=== PATIENT | female | born 1995 | race Caucasian/White ===

== ENCOUNTER 2018-05-20 16:05 | Emergency (ER) | payer MEDICAID ==
[~2018-05-20] VITALS: Ht 160 cm; Wt 52.6 kg
[2018-05-20 16:58] LABS: Basophils # (auto) 0 uL; Basophils % (auto) 0.2 % (0.0-2.0); Eosinophils # (auto) 0.1 uL; Eosinophils % (auto) 1.5 % (0.0-7.0); Hemoglobin 14.3 g/dL (12.2-16.2); Lymphocytes # (auto) 0.7 uL; Mean Corpuscular Hemoglobin 30.5 pg (28.0-32.0); Mean Corpuscular Volume 89.5 fL (80.0-100.0); Monocytes # (auto) 0.6 uL; Monocytes % (auto) 10.3 % (0.0-12.0); Neutrophils # (auto) 4.2 uL; Platelet Count (auto) 241 10^3/uL (140-450); Red Cell Distribution Width 13.1 % (11.8-14.3); White Blood Cell 5.6 10^3/uL (4.4-10.8)
[2018-05-20 17:11] LABS: Albumin 3.7 g/dL (3.4-5.0); Calcium 8.6 mg/dL (8.5-10.1); Potassium 3.7 mmol/L (3.5-5.1)
[2018-05-20 17:14] LABS: BUN/Creatinine Ratio 12.1; Bilirubin, Total 0.4 mg/dL (0.2-1.0); Total Protein 7.6 g/dL (6.4-8.2)
[2018-05-20 19:36] VITALS: BP 132/74
== END 2018-05-20 19:36 | disposition home or self-care (01) ==
LOC: ER 16:05
DX: O20.0 Threatened abortion (principal); Z3A.11 11 weeks gestation of pregnancy
CPT/HCPCS: 36415; 76801; 80053; 81025; 84702; 85025

== ENCOUNTER 2018-10-19 09:45 | Observation (INO) | payer MEDICAID | END 2018-10-19 16:24 | disposition home or self-care (01) | DRG 566 | LOC: LDRP 15:30 | PROVIDERS: ADMIT Specialist; ATTEND Specialist | DX: O40.3XX0 Polyhydramnios, third trimester, not applicable or unspecified (principal); Z3A.33 33 weeks gestation of pregnancy | CPT/HCPCS: 59025; 76818; 81002; G0378 ==

== ENCOUNTER 2018-10-22 15:08 | Observation (INO) | payer MEDICAID | END 2018-10-22 17:15 | disposition home or self-care (01) | DRG 566 | LOC: LDRP 15:08 | PROVIDERS: ADMIT Specialist; ATTEND Specialist | DX: O40.3XX0 Polyhydramnios, third trimester, not applicable or unspecified (principal); Z3A.33 33 weeks gestation of pregnancy | CPT/HCPCS: 59025; 76818; 81002; G0378 ==

== ENCOUNTER 2018-10-26 14:03 | Observation (INO) | payer MEDICAID ==
[2018-10-26] MEDS ORDERED: ASPI81CH43 GT (15:13)
[2018-10-26] MEDS ORDERED: PREN-145 OR (15:13)
== END 2018-10-26 15:30 | disposition home or self-care (01) | DRG 566 ==
LOC: LDRP 14:03
PROVIDERS: ADMIT Specialist; ATTEND Specialist
DX: O40.3XX0 Polyhydramnios, third trimester, not applicable or unspecified (principal); Z3A.34 34 weeks gestation of pregnancy
CPT/HCPCS: 59025; 76818; 81002; G0378

== ENCOUNTER 2018-10-29 09:27 | Observation (INO) | payer MEDICAID ==
[~2018-10-29 09:27] MED LIST: ASPI81CH43 GT; PREN-145 OR
== END 2018-10-29 10:25 | disposition home or self-care (01) | DRG 566 ==
LOC: LDRP 09:27
PROVIDERS: ADMIT Specialist; ATTEND Specialist
DX: O40.3XX0 Polyhydramnios, third trimester, not applicable or unspecified (principal); Z3A.34 34 weeks gestation of pregnancy
CPT/HCPCS: 76818; G0378; 59025; 81002

== ENCOUNTER 2018-11-01 11:00 | Observation (INO) | payer MEDICAID | END 2018-11-01 13:05 | disposition home or self-care (01) | DRG 566 | LOC: LDRP 11:00 | PROVIDERS: ADMIT Specialist; ATTEND Specialist | DX: O99.89 Other specified diseases and conditions complicating pregnancy, childbirth and the puerperium (principal); N13.30 Unspecified hydronephrosis; Z3A.35 35 weeks gestation of pregnancy | CPT/HCPCS: 59025; 76818; 81002; G0378 ==

== ENCOUNTER 2018-11-04 16:00 | Observation (INO) | payer MEDICAID | END 2018-11-04 17:14 | disposition home or self-care (01) | DRG 566 | LOC: LDRP 16:00 | PROVIDERS: ADMIT Obstetrics & Gynecology; ATTEND Obstetrics & Gynecology | DX: O99.89 Other specified diseases and conditions complicating pregnancy, childbirth and the puerperium (principal); N13.30 Unspecified hydronephrosis; O26.893 Other specified pregnancy related conditions, third trimester; N89.8 Other specified noninflammatory disorders of vagina; Z3A.35 35 weeks gestation of pregnancy | CPT/HCPCS: 59025; 76818; 81002; G0378 ==

== ENCOUNTER 2018-11-08 14:59 | Observation (INO) | payer MEDICAID | END 2018-11-08 16:40 | disposition home or self-care (01) | DRG 566 | LOC: LDRP 14:59 | PROVIDERS: ADMIT Specialist; ATTEND Specialist | DX: O99.89 Other specified diseases and conditions complicating pregnancy, childbirth and the puerperium (principal); N13.30 Unspecified hydronephrosis; O26.893 Other specified pregnancy related conditions, third trimester; N89.8 Other specified noninflammatory disorders of vagina; Z3A.36 36 weeks gestation of pregnancy | CPT/HCPCS: 59025; 76818; 81002; G0378 ==

== ENCOUNTER 2018-11-11 13:10 | Observation (INO) | payer MEDICAID | END 2018-11-11 14:10 | disposition home or self-care (01) | DRG 566 | LOC: LDRP 13:10 | PROVIDERS: ADMIT Obstetrics & Gynecology; ATTEND Obstetrics & Gynecology | DX: O99.89 Other specified diseases and conditions complicating pregnancy, childbirth and the puerperium (principal); N13.30 Unspecified hydronephrosis; Z3A.36 36 weeks gestation of pregnancy | CPT/HCPCS: 59025; 76818; 81002; G0378 ==

== ENCOUNTER 2018-11-18 13:04 | Observation (INO) | payer MEDICAID ==
[~2018-11-18 13:04] MED LIST changes: -ASPI81CH43 GT
[2018-11-18 15:26] LABS: Basophils # (auto) 0 uL; Basophils % (auto) 0.1 % (0.0-2.0); Eosinophils # (auto) 0.1 uL; Eosinophils % (auto) 0.9 % (0.0-7.0); Hematocrit 34.4 % (36.0-46.0); Hemoglobin 11.3 g/dL (12.2-16.2); Lymphocytes # (auto) 1.2 uL; Lymphocytes % (auto) 15.5 % (10.0-50.0); Mean Corpuscular Hemoglobin 27.8 pg (28.0-32.0); Mean Corpuscular Hgb Conc. 32.8 g/dL (32.0-36.0); Mean Corpuscular Volume 84.8 fL (80.0-100.0); Monocytes # (auto) 0.6 uL; Monocytes % (auto) 7.7 % (0.0-12.0); Neutrophils % (auto) 75.8 % (37.0-80.0); Nucleated Red Blood Cells % 0.1 %; Platelet Count (auto) 213 10^3/uL (140-450); Red Blood Cells 4.06 10^6/uL (4.0-5.20); Red Cell Distribution Width 13.1 % (11.8-14.3); White Blood Cell 7.9 10^3/uL (4.4-10.8)
== END 2018-11-18 15:15 | disposition home or self-care (01) | DRG 566 ==
LOC: LDRP 13:04
PROVIDERS: ADMIT Specialist; ATTEND Specialist
DX: O40.3XX0 Polyhydramnios, third trimester, not applicable or unspecified (principal); Z3A.36 36 weeks gestation of pregnancy
CPT/HCPCS: 36415; 59025; 76818; 81002; 85025; G0378

== ENCOUNTER 2018-11-25 11:28 | Observation (INO) | payer MEDICAID | END 2018-11-29 14:55 | disposition home or self-care (01) | DRG 566 | LOC: LDRP 11-29 13:07 | PROVIDERS: ADMIT Specialist; ATTEND Specialist | DX: O62.9 Abnormality of forces of labor, unspecified (principal); Z3A.39 39 weeks gestation of pregnancy | CPT/HCPCS: 76818; G0378; 59025; 81002 ==

== ENCOUNTER 2018-12-02 23:07 | Inpatient (IN) | payer MEDICAID ==
[~2018-12-02] VITALS: Ht 160 cm; Wt 70.3 kg
[2018-12-02] MEDS ORDERED: LACT. RINGERS/OXYTOCIN 20UNITS 1,000 ML IV SCH (23:13)
[2018-12-02] MEDS ORDERED: WITCH HAZEL-GLYCERIN PAD TOP PRN (23:15)
[2018-12-02] MEDS ORDERED: METHYLERGONOVINE MALEATE 0.2 MG/ML AMP IM PRN (23:15)
[2018-12-02] MEDS ORDERED: LIDOCAINE 2%HCL (LOCAL ANESTH.) INJ 20ML MDV ID PRN (23:15)
[2018-12-02] MEDS ORDERED: DERMOPLAST 60ML BOTTLE TOP PRN (23:15)
[2018-12-02] MEDS ORDERED: PHISODERM TOP SOLN 240ML BTL TOP PRN (23:15)
[2018-12-02] MEDS: LACTATED RINGER'S 1,000 ML IV SCH (23:56)
[2018-12-03 00:08] LABS: Basophils # (auto) 0 uL; Basophils % (auto) 0.4 % (0.0-2.0); Eosinophils # (auto) 0.1 uL; Eosinophils % (auto) 1.3 % (0.0-7.0); Hematocrit 34.2 % (36.0-46.0); Hemoglobin 11.5 g/dL (12.2-16.2); Lymphocytes # (auto) 1.3 uL; Lymphocytes % (auto) 17.2 % (10.0-50.0); Mean Corpuscular Hgb Conc. 33.7 g/dL (32.0-36.0); Mean Corpuscular Volume 82.8 fL (80.0-100.0); Monocytes # (auto) 0.5 uL; Monocytes % (auto) 6.7 % (0.0-12.0); Neutrophils # (auto) 5.7 uL; Neutrophils % (auto) 74.4 % (37.0-80.0); Nucleated Red Blood Cells % 0.1 %; Platelet Count (auto) 188 10^3/uL (140-450); Red Blood Cells 4.13 10^6/uL (4.0-5.20); Red Cell Distribution Width 13.4 % (11.8-14.3); White Blood Cell 7.6 10^3/uL (4.4-10.8)
[2018-12-03 00:22] LABS: INR < 0.93 (0.9-1.15); Partial Thromboplastin Time 23.3 sec (23.64-32.05)
[2018-12-03 00:29] LABS: Urine Bacteria MOD /hpf (None Seen); Urine Blood Negative /uL (Negative); Urine Mucus FEW (None Seen); Urine Specific Gravity 1.014 (1.001-1.035); Urine WBC 3 /hpf (0 - 5)
[2018-12-03 00:32] LABS: Albumin 2.9 g/dL (3.4-5.0); BUN/Creatinine Ratio 11.5; Calcium 8.9 mg/dL (8.5-10.1); Potassium 3.7 mmol/L (3.5-5.1)
[2018-12-03 00:34] LABS: Bilirubin, Total 0.2 mg/dL (0.2-1.0); Total Protein 6.8 g/dL (6.4-8.2)
[2018-12-03 00:38] LABS: Alcohol, Urine < 3.0 mg/dL (0-5); Amphetamine Screen, Urine NEGATIVE (NEGATIVE); Barbiturate Scree,Urine NEGATIVE (NEGATIVE); Benzodiazephine Screen, Urine NEGATIVE (NEGATIVE); Cannabinoid Screen, Urine NEGATIVE (NEGATIVE); Cocaine Screen, Urine NEGATIVE (NEGATIVE); Opiate Scree,Urine NEGATIVE (NEGATIVE); Phencyclidine Screen, Urine NEGATIVE (NEGATIVE)
[2018-12-03] MEDS ORDERED: TERBUTALINE SULFATE 1 MG/ML 1ML VIAL SC ONE (06:30)
[2018-12-03] MEDS ORDERED: LACT. RINGERS/OXYTOCIN 20UNITS 1,000 ML IV SCH (06:30)
[2018-12-03] MEDS: LACTATED RINGER'S 1,000 ML IV SCH ×2 (07:13→15:13)
[2018-12-03] MEDS ORDERED: ACETAMINOPHEN 325 MG TAB PO PRN (13:45)
[2018-12-03] MEDS ORDERED: IBUPROFEN 600 MG TAB PO PRN (13:45)
[2018-12-03 14:02] VITALS: BP 111/68
--- NOTE | 2018-12-03 14:02 | NUR ---
Ambulation: Fundus and lochia assessed, VS taken and stable, pt assisted to side of bed to dangle prior to ambulation. Pt denies any dizziness. Patient OOB with standby assistance by RN. Patient ambulated to bathroom with steady gait. Patient able to void 900 mls without difficulty. [facility] teaching provided with returned demonstration by patient. Clean gown provided and bed linen changed. Patient ambulated back to bed with steady gait and no distress noted.
[2018-12-03 15:18] VITALS: BP 121/67
--- NOTE | 2018-12-03 18:10 | NUR ---
Report given to Jennifer Flores RN on stable pt. Relinquished care. Addendum: 12/03/18 at 1813 by Zabrina Delgado RN Amended: Links added.
[2018-12-03 19:30] VITALS: BP 135/65
[2018-12-03 23:00] VITALS: BP 122/60
[2018-12-04 02:37] VITALS: BP 110/56
[2018-12-04 07:15] VITALS: BP 108/58
--- NOTE | 2018-12-04 09:15 | NUR ---
IV removal IV DC'd with clean technique, catheter fully intact. Pressure dressing applied to site. Patient tolerated procedure well.
[2018-12-04 10:10] LABS: RPR Non Reactive (Non Reactive)
[2018-12-04 10:42] VITALS: BP 108/56
[2018-12-04 15:05] VITALS: BP 115/54
--- NOTE | 2018-12-04 15:45 | NUR ---
Discharge: Discharge instructions given as ordered. Pt encouraged to follow up with [employer] as instructed. All questions and concerns addressed. Patient verbalized understanding. Medication reconciliation completed and copy given to patient. All required/requested vaccines given and copies of vaccinations given to patient. Patient encouraged to prepare to depart unit.
--- NOTE | 2018-12-04 16:00 | NUR ---
Discharge: Patient ambulated to vehicle with all personal belongings, accompanied by staff and family member. No distress noted at time of departure, no adverse changes in status since initial assessment.
== END 2018-12-04 16:00 | disposition home or self-care (01) | DRG 560 ==
LOC: LDRP 23:07
PROVIDERS: ADMIT Specialist; ATTEND Specialist
PROC: 10E0XZZ Delivery of Products of Conception, External Approach (ICD-10-PCS; principal; 2018-12-02)
DX: O69.81X0 Labor and delivery complicated by cord around neck, without compression, not applicable or unspecified (principal); Z37.0 Single live birth; Z3A.39 39 weeks gestation of pregnancy
CPT/HCPCS: 36415; 59025; 59409; 80053; 80307; 81001; 81002; 84112; 85025; 85610; 85730; 86592; 86850; 86900; 86901; 96361; 96366; G0378; J2590

== ENCOUNTER 2020-05-07 10:09 | Emergency (ER) | payer MEDICAID ==
[~2020-05-07] VITALS: Ht 160 cm; Wt 52.2 kg
[2020-05-07] MEDS ORDERED: PROMETHAZINE HCL 25 MG/ML 1ML IV ONE (10:15)
[2020-05-07] MEDS ORDERED: SODIUM CHLORIDE 0.9% 1,000 ML IV ONE ×2 (10:15)
[2020-05-07 10:36] LABS: Basophils # (auto) 0 10 ^3/uL (0-0.2); Basophils % (auto) 0.2 % (0.0-2.0); Eosinophils # (auto) 0 10 ^3/uL (0-0.8); Eosinophils % (auto) 0.1 % (0.0-7.0); Hematocrit 40.4 % (36.0-46.0); Hemoglobin 13.8 g/dL (12.2-16.2); Lymphocytes # (auto) 0.3 10 ^3/uL (0.4-5.4); Lymphocytes % (auto) 7.3 % (10.0-50.0); Mean Corpuscular Hgb Conc. 34.3 g/dL (32.0-36.0); Mean Corpuscular Volume 87.4 fL (80.0-100.0); Monocytes # (auto) 0.4 10 ^3/uL (0-1.3); Monocytes % (auto) 8.4 % (0.0-12.0); Platelet Count (auto) 228 10^3/uL (140-450); Red Blood Cells 4.62 10^6/uL (4.0-5.20); White Blood Cell 4.8 10^3/uL (4.4-10.8)
[2020-05-07 10:42] LABS: Urine Bacteria FEW /hpf (None Seen); Urine Blood Negative /uL (Negative); Urine Mucus FEW (None Seen); Urine Specific Gravity 1.034 (1.001-1.035); Urine WBC 5 /hpf (0 - 5)
[2020-05-07 10:53] LABS: Albumin 3.5 g/dL (3.4-5.0); Calcium 8.5 mg/dL (8.5-10.1); Potassium 3.6 mmol/L (3.5-5.1)
[2020-05-07 10:56] LABS: BUN/Creatinine Ratio 15.7; Bilirubin, Total 0.5 mg/dL (0.2-1.0); Total Protein 7.2 g/dL (6.4-8.2)
[2020-05-07 12:32] VITALS: BP 110/61
== END 2020-05-07 13:21 | disposition home or self-care (01) ==
LOC: ER 10:09
DX: O23.41 Unspecified infection of urinary tract in pregnancy, first trimester (principal); Z3A.08 8 weeks gestation of pregnancy; Z79.899 Other long term (current) drug therapy; Z20.822 Contact with and (suspected) exposure to COVID-19
CPT/HCPCS: 36415; 80053; 81001; 84702; 85025; 87426; 96361; 96374; 99284; C9803; J2550; U0003

== ENCOUNTER 2020-12-11 17:32 | Inpatient (IN) | payer MEDICAID ==
[~2020-12-11] VITALS: Ht 160 cm; Wt 68.5 kg
[2020-12-11] MEDS ORDERED: BUTORPHANOL TARTRATE 2 MG/1 ML VIAL IV PRN ×2 (20:00)
[2020-12-11] MEDS ORDERED: LIDOCAINE 2%HCL (LOCAL ANESTH.) INJ 20ML MDV IJ PRN (20:00)
[2020-12-11] MEDS ORDERED: LACT. RINGERS/OXYTOCIN 20UNITS 500 ML IV ONE ×2 (20:00→20:30)
[2020-12-11] MEDS ORDERED: WITCH HAZEL-GLYCERIN PAD TOP PRN (20:00)
[2020-12-11] MEDS ORDERED: PROMETHAZINE HCL 25 MG/ML 1ML IV PRN (20:00)
[2020-12-11] MEDS ORDERED: LACTATED RINGER'S 1,000 ML IV SCH (20:00)
[2020-12-11] MEDS ORDERED: PHISODERM TOP SOLN 240ML BTL TOP PRN (20:00)
[2020-12-11] MEDS ORDERED: DERMOPLAST 60ML BOTTLE TOP PRN (20:00)
[2020-12-11 20:54] LABS: Hemoglobin 11.2 g/dL (12.2-16.2)
[2020-12-11 20:56] LABS: Basophils # (auto) 0 10 ^3/uL (0-0.2); Basophils % (auto) 0.3 % (0.0-2.0); Eosinophils # (auto) 0 10 ^3/uL (0-0.8); Eosinophils % (auto) 0.4 % (0.0-7.0); Hematocrit 34.7 % (36.0-46.0); Lymphocytes # (auto) 1.6 10 ^3/uL (0.4-5.4); Lymphocytes % (auto) 14.7 % (10.0-50.0); Mean Corpuscular Hemoglobin 25.2 pg (28.0-32.0); Mean Corpuscular Hgb Conc. 32.2 g/dL (32.0-36.0); Mean Corpuscular Volume 78.3 fL (80.0-100.0); Monocytes # (auto) 0.6 10 ^3/uL (0-1.3); Monocytes % (auto) 5.7 % (0.0-12.0); Neutrophils # (auto) 8.3 10 ^3/uL (1.6-8.6); Neutrophils % (auto) 78.9 % (37.0-80.0); Nucleated Red Blood Cells % 0.1 %; Red Blood Cells 4.43 10^6/uL (4.0-5.20); Red Cell Distribution Width 14.2 % (11.8-14.3); White Blood Cell 10.5 10^3/uL (4.4-10.8)
[2020-12-11 20:58] LABS: Urine Bacteria FEW /hpf (None Seen); Urine Blood Negative /uL (Negative); Urine Mucus FEW (None Seen); Urine Specific Gravity 1.018 (1.001-1.035); Urine WBC 1 /hpf (0 - 5)
[2020-12-11] MEDS ORDERED: miSOPROStol 100 mcg TAB SL PRN (21:00)
[2020-12-11] MEDS ORDERED: miSOPROStol 100 mcg TAB PR PRN (21:00)
[2020-12-11] MEDS ORDERED: METHYLERGONOVINE MALEATE 0.2 MG/ML AMP IM PRN (21:00)
[2020-12-11 21:06] LABS: Albumin 3.1 g/dL (3.4-5.0); Calcium 8.5 mg/dL (8.5-10.1); Potassium 3.7 mmol/L (3.5-5.1)
[2020-12-11 21:09] LABS: BUN/Creatinine Ratio 11.3; Bilirubin, Total 0.3 mg/dL (0.2-1.0); INR 0.94 (0.9-1.15); Partial Thromboplastin Time 23.1 sec (23.6-33.0); Total Protein 6.9 g/dL (6.4-8.2)
[2020-12-11 21:42] LABS: Alcohol, Urine < 3.0 mg/dL (0-10); Amphetamine Screen, Urine NEGATIVE (NEGATIVE); Barbiturate Scree,Urine NEGATIVE (NEGATIVE); Benzodiazephine Screen, Urine NEGATIVE (NEGATIVE); Cannabinoid Screen, Urine NEGATIVE (NEGATIVE); Cocaine Screen, Urine NEGATIVE (NEGATIVE); Opiate Scree,Urine NEGATIVE (NEGATIVE); Phencyclidine Screen, Urine NEGATIVE (NEGATIVE)
[2020-12-12 03:11] VITALS: BP 131/69
[2020-12-12] MEDS ORDERED: IBUPROFEN 600 MG TAB PO PRN (04:30)
[2020-12-12] MEDS ORDERED: ONDANSETRON ODT 4 MG TAB PO PRN (04:30)
[2020-12-12] MEDS ORDERED: IBUPROFEN 800 MG TAB PO PRN (04:30)
[2020-12-12] MEDS ORDERED: ACETAMINOPHEN 325 MG TAB PO PRN (04:30)
[2020-12-12 07:00] VITALS: BP 140/82
[2020-12-12 11:00] VITALS: BP 122/70
[2020-12-12 15:00] VITALS: BP 123/75
[2020-12-12 19:00] VITALS: BP 115/64
[2020-12-12 23:00] VITALS: BP 111/68
[2020-12-13 03:00] VITALS: BP 114/71
[2020-12-13 06:06] LABS: RPR Non Reactive (Non Reactive)
[2020-12-13 06:50] VITALS: BP 105/69
== END 2020-12-13 08:43 | disposition home or self-care (01) | DRG 560 ==
LOC: UNDOADMOB 17:32 → LDRP 17:32 → OBSVTOIN 19:49 → INTOOBSV 19:49 → LDRP 19:49
PROVIDERS: ADMIT Obstetrics & Gynecology; ATTEND Obstetrics & Gynecology
PROC: 10E0XZZ Delivery of Products of Conception, External Approach (ICD-10-PCS; principal; 2020-12-11)
DX: O80 Encounter for full-term uncomplicated delivery (principal); Z37.0 Single live birth; Z20.822 Contact with and (suspected) exposure to COVID-19; Z3A.39 39 weeks gestation of pregnancy
CPT/HCPCS: 36415; 59025; 59409; 80053; 80307; 81001; 81002; 85025; 85610; 85730; 86592; 86850; 86900; 86901; 87426; 94760; 96360; 96361; 96365; 96372; G0378; J2590

== ENCOUNTER → 2021-01-18 | Day surgery (SDC) | payer MEDICAID ==
[2021-01-16 11:14] LABS: Basophils # (auto) 0 10 ^3/uL (0-0.2); Eosinophils # (auto) 0.1 10 ^3/uL (0-0.8); Hemoglobin 13.6 g/dL (12.2-16.2); Lymphocytes # (auto) 1.6 10 ^3/uL (0.4-5.4); Mean Corpuscular Hemoglobin 25.3 pg (28.0-32.0); Mean Corpuscular Hgb Conc. 31.6 g/dL (32.0-36.0); Monocytes # (auto) 0.4 10 ^3/uL (0-1.3); Red Blood Cells 5.36 10^6/uL (4.0-5.20)
[2021-01-16 11:15] LABS: Basophils % (auto) 0.3 % (0.0-2.0); Eosinophils % (auto) 1.2 % (0.0-7.0); Mean Corpuscular Volume 80.1 fL (80.0-100.0); Monocytes % (auto) 4.9 % (0.0-12.0); Neutrophils # (auto) 5.8 10 ^3/uL (1.6-8.6); Neutrophils % (auto) 73.6 % (37.0-80.0); Red Cell Distribution Width 17.1 % (11.8-14.3); White Blood Cell 7.9 10^3/uL (4.4-10.8)
[2021-01-16 11:26] LABS: Urine Bacteria NONE SEEN /hpf (None Seen); Urine Blood Negative /uL (Negative); Urine Specific Gravity 1.015 (1.001-1.035); Urine WBC 17 /hpf (0 - 5)
[2021-01-16 12:16] LABS: Potassium 4.3 mmol/L (3.5-5.1)
[2021-01-16 12:28] LABS: Albumin 3.8 g/dL (3.4-5.0); BUN/Creatinine Ratio 10.6; Bilirubin, Total 0.4 mg/dL (0.2-1.0); Total Protein 7.2 g/dL (6.4-8.2)
[~2021-01-18] VITALS: Ht 33 cm; Wt 0.5 kg
[~2021-01-18] MED LIST changes: +GLYCOPYRROLATE 0.2 MG/ML 1ML VIAL ONE; +HYDROmorphone HCL 2 MG/ML VL ONE; +LACTATED RINGER'S 1,000 ML IV SCH; +LIDOCAINE 2% (LOCAL ANESTH.) PF 5ml SDV ONE; +MIDAZOLAM HCL 2MG/2ML 2ml VIAL (1mg/ml) ONE; +NEOSTIGMINE 1 MG/ML INJ (10mg/10ML VIAL) ONE; +ONDANSETRON HCL 4 MG/2 ML VIAL IV PRN; +ONDANSETRON HCL 4 MG/2 ML VIAL ONE; +PROPOFOL 10 MG/ML 20 ML IV ONE; +ROCURONIUM 10MG/ML 10ML VIAL IV ONE; +ceFAZolin 1GM/50ML 50 ML IV ONE; +fentaNYL CITRATE 100 MCG/2 ML VL ONE
[2021-01-18] MEDS: HYDROmorphone HCL 2 MG/ML VL IV PRN ×3 (08:45→09:18)
[2021-01-18 09:45] VITALS: BP 137/80
== END | disposition home or self-care (01) ==
LOC: SUR 06:09
PROVIDERS: ATTEND Obstetrics & Gynecology
DX: Z30.2 Encounter for sterilization (principal); Z87.891 Personal history of nicotine dependence; Z20.822 Contact with and (suspected) exposure to COVID-19
CPT/HCPCS: 36415; 58670; 80053; 81001; 81025; 84702; 85025; 86850; 86900; 86901; J0690; J1170; J2001; J2250; J2405; J2704; J3010; U0003

== ENCOUNTER 2023-02-02 16:09 | Inpatient (IN) | payer MEDICAID ==
[~2023-02-02] VITALS: Ht 160 cm; Wt 59.0 kg
[~2023-02-02 16:09] MED LIST changes: -GLYCOPYRROLATE 0.2 MG/ML 1ML VIAL ONE; -HYDROmorphone HCL 2 MG/ML VL ONE; -LACTATED RINGER'S 1,000 ML IV SCH; -LIDOCAINE 2% (LOCAL ANESTH.) PF 5ml SDV ONE; -MIDAZOLAM HCL 2MG/2ML 2ml VIAL (1mg/ml) ONE; -NEOSTIGMINE 1 MG/ML INJ (10mg/10ML VIAL) ONE; -ONDANSETRON HCL 4 MG/2 ML VIAL IV PRN; -ONDANSETRON HCL 4 MG/2 ML VIAL ONE; -PROPOFOL 10 MG/ML 20 ML IV ONE; -ROCURONIUM 10MG/ML 10ML VIAL IV ONE; -ceFAZolin 1GM/50ML 50 ML IV ONE; -fentaNYL CITRATE 100 MCG/2 ML VL ONE
[2023-02-02 16:30] VITALS: PULSE 112; RESP 17; O2SAT 98
[2023-02-02 17:13] LABS: Basophils # (auto) 0.1 10 ^3/uL (0-0.2); Basophils % (auto) 0.5 % (0.0-2.0); Eosinophils # (auto) 0.1 10 ^3/uL (0-0.8); Eosinophils % (auto) 0.6 % (0.0-7.0); Hemoglobin 10.9 g/dL (12.2-16.2); Lymphocytes % (auto) 20.3 % (10.0-50.0); Mean Corpuscular Hemoglobin 21.2 pg (28.0-32.0); Mean Corpuscular Volume 75.6 fL (80.0-100.0); Monocytes # (auto) 0.5 10 ^3/uL (0-1.3); Monocytes % (auto) 5.1 % (0.0-12.0); Neutrophils # (auto) 7.3 10 ^3/uL (1.6-8.6); Neutrophils % (auto) 73.5 % (37.0-80.0); Nucleated Red Blood Cells % 0.1 %; Red Blood Cells 5.15 10^6/uL (4.0-5.20); Red Cell Distribution Width 18.2 % (11.8-14.3); White Blood Cell 9.9 10^3/uL (4.4-10.8)
[2023-02-02 17:35] LABS: INR 1.06 (0.9-1.15); Partial Thromboplastin Time 23.8 SEC (24.5-34.5); Prothrombin Time 11.1 sec (9.3-11.8)
[2023-02-02 17:47] LABS: Alanine Aminotransferase 17 U/L (7-40); Albumin 4.2 g/dL (3.2-4.8); Alkaline Phosphatase 115 U/L (46-116); Anion Gap 6 (5-15); Aspartate Aminotransferase 26 U/L (13-40); BUN/Creatinine Ratio 15.7 (10.0-20.0); Bilirubin, Total 0.5 mg/dL (0.2-1.0); Blood Urea Nitrogen 13 mg/dL (9-23); Calcium 9.4 mg/dL (8.5-10.1); Carbon Dioxide 25 mmol/L (20-30); Chloride 108 mmol/L (98-107); Glucose 115 mg/dL (74-106); Potassium 4.9 mmol/L (3.5-5.1); Sodium 139 mmol/L (136-145); Total Protein 6.2 g/dL (5.7-8.2)
[2023-02-02] MEDS ORDERED: HEPARIN DRIP/D5W 100UNITS/ML 250 ML IV SCH (19:00)
[2023-02-02] MEDS ORDERED: HEPARIN SODIUM (PORCINE) 5000 UNITS/ML 1ML VIAL IV ONE (19:00)
[2023-02-02 19:15] VITALS: PULSE 132; RESP 12; O2SAT 98
[2023-02-02 19:45] LABS: Basophils # (auto) 0 10 ^3/uL (0-0.2); Eosinophils # (auto) 0 10 ^3/uL (0-0.8); Eosinophils % (auto) 0.4 % (0.0-7.0); Hematocrit 32.6 % (36.0-46.0); Lymphocytes # (auto) 1.1 10 ^3/uL (0.4-5.4); Monocytes # (auto) 0.5 10 ^3/uL (0-1.3); Monocytes % (auto) 6.7 % (0.0-12.0); Neutrophils # (auto) 5.7 10 ^3/uL (1.6-8.6); White Blood Cell 7.4 10^3/uL (4.4-10.8)
[2023-02-02 19:47] LABS: Basophils % (auto) 0.3 % (0.0-2.0); Hemoglobin 9.9 g/dL (12.2-16.2); Lymphocytes % (auto) 15.4 % (10.0-50.0); Mean Corpuscular Hemoglobin 21.1 pg (28.0-32.0); Mean Corpuscular Hgb Conc. 30.4 g/dL (32.0-36.0); Mean Corpuscular Volume 69.6 fL (80.0-100.0); Neutrophils % (auto) 77.2 % (37.0-80.0); Red Blood Cells 4.68 10^6/uL (4.0-5.20); Red Cell Distribution Width 17.3 % (11.8-14.3)
[2023-02-02 19:52] LABS: INR 1.14 (0.9-1.15); Prothrombin Time 11.9 sec (9.3-11.8)
[2023-02-02 20:02] LABS: Partial Thromboplastin Time 89.3 SEC (24.5-34.5)
[2023-02-02] MEDS ORDERED: ALBUTEROL MEDNEB 2.5 mg/3ml NEB NEB PRN (20:30)
[2023-02-02] MEDS ORDERED: NITROGLYCERIN 0.4 MG SL TAB SL PRN (20:30)
[2023-02-02] MEDS ORDERED: MORPHINE SULFATE INJ 2 MG/ml SYRG IV PRN (20:30)
[2023-02-02] MEDS ORDERED: ONDANSETRON HCL 4 MG/2 ML VIAL IV PRN (20:30)
[2023-02-02] MEDS ORDERED: IOHEXOL 350 MG/ML 100ML IJ ONE (20:33)
[2023-02-02] MEDS: SODIUM CHLORIDE 0.9% 1,000 ML IV SCH (21:23)
[2023-02-02] MEDS ORDERED: FUROSEMIDE 20 MG/2 ML VIAL IV ONE (21:45)
[2023-02-02 22:30] VITALS: BP 107/70; PULSE 132; RESP 16; TEMP 98; O2SAT 99
[2023-02-03] VITALS (22 sets, daily range): BP systolic 87–110; BP diastolic 57–67; PULSE 74–118; RESP 10–18; TEMP 98.2–98.8; O2SAT 96–100
[2023-02-03 02:52] LABS: INR 1.05 (0.9-1.15); Partial Thromboplastin Time 43.9 SEC (24.5-34.5)
[2023-02-03] MEDS ORDERED: HEPARIN DRIP/D5W 100UNITS/ML 250 ML IV SCH ×2 (03:45→18:00)
[2023-02-03 06:59] LABS: Red Blood Cells 3.47 10^6/uL (4.0-5.20); White Blood Cell 5.4 10^3/uL (4.4-10.8)
[2023-02-03 07:00] LABS: Basophils # (auto) 0 10 ^3/uL (0-0.2); Basophils % (auto) 0.4 % (0.0-2.0); Eosinophils # (auto) 0.1 10 ^3/uL (0-0.8); Eosinophils % (auto) 1.1 % (0.0-7.0); Hematocrit 26.4 % (36.0-46.0); Hemoglobin 7.4 g/dL (12.2-16.2); Lymphocytes # (auto) 1.5 10 ^3/uL (0.4-5.4); Lymphocytes % (auto) 27.9 % (10.0-50.0); Mean Corpuscular Hemoglobin 21.4 pg (28.0-32.0); Mean Corpuscular Hgb Conc. 28.2 g/dL (32.0-36.0); Mean Corpuscular Volume 76.1 fL (80.0-100.0); Monocytes # (auto) 0.4 10 ^3/uL (0-1.3); Monocytes % (auto) 7.2 % (0.0-12.0); Neutrophils # (auto) 3.4 10 ^3/uL (1.6-8.6); Neutrophils % (auto) 63.4 % (37.0-80.0); Nucleated Red Blood Cells % 0.2 %; Red Cell Distribution Width 17.6 % (11.8-14.3)
[2023-02-03 07:14] LABS: Albumin 3.2 g/dL (3.2-4.8); Alkaline Phosphatase 84 U/L (46-116); Anion Gap 8 (5-15); Aspartate Aminotransferase 17 U/L (13-40); BUN/Creatinine Ratio 11.6 (10.0-20.0); Bilirubin, Total 0.3 mg/dL (0.2-1.0); Blood Urea Nitrogen 8 mg/dL (9-23); Carbon Dioxide 22 mmol/L (20-30); Chloride 113 mmol/L (98-107); Glucose 84 mg/dL (74-106); Potassium 3.3 mmol/L (3.5-5.1); Sodium 143 mmol/L (136-145); Total Protein 4.9 g/dL (5.7-8.2)
[2023-02-03 07:16] LABS: Alanine Aminotransferase 9 U/L (7-40)
[2023-02-03 09:33] LABS: INR 1.08 (0.9-1.15); Partial Thromboplastin Time 62.9 SEC (24.5-34.5); Prothrombin Time 11.3 sec (9.3-11.8)
[2023-02-03] MEDS: SODIUM CHLORIDE 0.9% 1,000 ML IV SCH (09:50)
[2023-02-03] MEDS ORDERED: MIDAZOLAM HCL 2MG/2ML 2ml VIAL (1mg/ml) ONE (11:50)
[2023-02-03] MEDS ORDERED: fentaNYL CITRATE 100 MCG/2 ML VL ONE (11:50)
[2023-02-03] MEDS ORDERED: HEPARIN IN NS 1000Units/500mL 1,500 ML ONE (11:52)
[2023-02-03] MEDS ORDERED: IODIXANOL 320MG/ML 100ML BTL IV ONE (11:52)
[2023-02-03] MEDS ORDERED: LIDOCAINE 2%HCL (LOCAL ANESTH.) INJ 20ML MDV ONE (11:52)
[2023-02-03] MEDS ORDERED: HEPARIN 1,000 UNITS/ml 1ML VIAL ONE ×2 (12:24→13:03)
[2023-02-03] MEDS ORDERED: HEPARIN SODIUM (PORCINE) 5000 UNITS/ML 1ML VIAL ONE (12:24)
[2023-02-03 16:49] LABS: INR 1.11 (0.9-1.15); Prothrombin Time 11.6 sec (9.3-11.8)
[2023-02-03 16:55] LABS: Partial Thromboplastin Time > 139.0 SEC (24.5-34.5)
[2023-02-04] VITALS (22 sets, daily range): BP systolic 94–124; BP diastolic 56–78; PULSE 62–94; RESP 8–16; TEMP 98.1–98.6; O2SAT 96–100
[2023-02-04 02:20] LABS: INR 1.08 (0.9-1.15); Prothrombin Time 11.3 sec (9.3-11.8)
[2023-02-04 07:24] LABS: % Iron Saturation 6.4 % (15-50)
[2023-02-04 07:31] LABS: Alkaline Phosphatase 91 U/L (46-116); Anion Gap 7 (5-15); BUN/Creatinine Ratio 12.1 (10.0-20.0); Blood Urea Nitrogen 8 mg/dL (9-23); Calcium 8.2 mg/dL (8.7-10.4); Carbon Dioxide 26 mmol/L (20-30); Chloride 108 mmol/L (98-107); Glucose 85 mg/dL (74-106); Magnesium 1.8 mg/dL (1.6-2.6); Sodium 141 mmol/L (136-145)
[2023-02-04 07:32] LABS: Albumin 3.5 g/dL (3.2-4.8); Aspartate Aminotransferase 15 U/L (13-40)
[2023-02-04 07:33] LABS: Alanine Aminotransferase 9 U/L (7-40); Basophils # (auto) 0 10 ^3/uL (0-0.2); Bilirubin, Total 0.3 mg/dL (0.2-1.0); Hemoglobin 8.5 g/dL (12.2-16.2); Lymphocytes # (auto) 1.6 10 ^3/uL (0.4-5.4); Red Blood Cells 3.95 10^6/uL (4.0-5.20); Total Protein 5.4 g/dL (5.7-8.2); White Blood Cell 4.5 10^3/uL (4.4-10.8)
[2023-02-04 07:35] LABS: Basophils % (auto) 0.3 % (0.0-2.0); Eosinophils # (auto) 0.1 10 ^3/uL (0-0.8); Eosinophils % (auto) 3.1 % (0.0-7.0); Hematocrit 27.7 % (36.0-46.0); Mean Corpuscular Hemoglobin 21.4 pg (28.0-32.0); Mean Corpuscular Hgb Conc. 30.5 g/dL (32.0-36.0); Mean Corpuscular Volume 70.2 fL (80.0-100.0); Monocytes # (auto) 0.4 10 ^3/uL (0-1.3); Monocytes % (auto) 8.4 % (0.0-12.0); Neutrophils # (auto) 2.3 10 ^3/uL (1.6-8.6); Neutrophils % (auto) 52.2 % (37.0-80.0); Red Cell Distribution Width 17.2 % (11.8-14.3)
[2023-02-04 07:37] LABS: INR 1.07 (0.9-1.15); Prothrombin Time 11.2 sec (9.3-11.8)
[2023-02-04 07:44] LABS: Partial Thromboplastin Time 70.6 SEC (24.5-34.5)
[2023-02-04] MEDS ORDERED: HEPARIN DRIP/D5W 100UNITS/ML 250 ML IV SCH (08:30)
[2023-02-04] MEDS ORDERED: POTASSIUM CHL 20 Meq TABLET PO ONE (09:00)
[2023-02-04 15:33] LABS: INR 1.04 (0.9-1.15); Partial Thromboplastin Time 60.5 SEC (24.5-34.5); Prothrombin Time 10.9 sec (9.3-11.8)
[2023-02-04] MEDS: APIXABAN 5 MG TAB PO SCH (16:44)
[2023-02-05] VITALS (14 sets, daily range): BP systolic 107–134; BP diastolic 67–81; PULSE 61–93; RESP 9–12; TEMP 36.8; O2SAT 98–100
[2023-02-05] MEDS ORDERED: ACETAMINOPHEN 325 MG TAB PO PRN (02:45)
[2023-02-05] MEDS: APIXABAN 5 MG TAB PO SCH (04:59)
[2023-02-05 06:09] LABS: Basophils # (auto) 0 10 ^3/uL (0-0.2); Eosinophils # (auto) 0.1 10 ^3/uL (0-0.8); Hemoglobin 8.9 g/dL (12.2-16.2); Monocytes # (auto) 0.3 10 ^3/uL (0-1.3); Monocytes % (auto) 6.3 % (0.0-12.0); Neutrophils # (auto) 3.8 10 ^3/uL (1.6-8.6); White Blood Cell 5.3 10^3/uL (4.4-10.8)
[2023-02-05 06:12] LABS: Basophils % (auto) 0.2 % (0.0-2.0); Hematocrit 28.8 % (36.0-46.0); Lymphocytes % (auto) 19.6 % (10.0-50.0); Mean Corpuscular Hemoglobin 21.5 pg (28.0-32.0); Mean Corpuscular Hgb Conc. 30.9 g/dL (32.0-36.0); Mean Corpuscular Volume 69.7 fL (80.0-100.0); Neutrophils % (auto) 71.9 % (37.0-80.0); Red Blood Cells 4.13 10^6/uL (4.0-5.20); Red Cell Distribution Width 17.4 % (11.8-14.3)
[2023-02-05 06:30] LABS: Albumin 3.8 g/dL (3.2-4.8); Alkaline Phosphatase 93 U/L (46-116); Anion Gap 7 (5-15); Aspartate Aminotransferase 11 U/L (13-40); Bilirubin, Total 0.3 mg/dL (0.2-1.0); Blood Urea Nitrogen 7 mg/dL (9-23); Calcium 8.8 mg/dL (8.7-10.4); Carbon Dioxide 27 mmol/L (20-30); Chloride 107 mmol/L (98-107); Glucose 95 mg/dL (74-106); Magnesium 1.9 mg/dL (1.6-2.6); Potassium 4.2 mmol/L (3.5-5.1); Sodium 141 mmol/L (136-145); Total Protein 5.9 g/dL (5.7-8.2)
[2023-02-05 06:32] LABS: Alanine Aminotransferase < 9 U/L (7-40)
[2023-02-05] MEDS ORDERED: APIX5TAB PO (10:10)
[2023-02-11] MEDS ORDERED: APIXABAN 5 MG TAB PO SCH (17:15)
== END 2023-02-05 13:23 | disposition home or self-care (01) | DRG 561 ==
LOC: EDBD 16:09 → ER 16:09 → TELE 20:29 → DOU IN ICU 02-03 10:30
PROVIDERS: ADMIT Internal Medicine Pulmonary Disease; ATTEND Emergency Medicine
PROC: 4A023N6 Measurement of Cardiac Sampling and Pressure, Right Heart, Percutaneous Approach (ICD-10-PCS; principal; 2023-02-03)
PROC: 02CR3ZZ Extirpation of Matter from Left Pulmonary Artery, Percutaneous Approach (ICD-10-PCS; 2023-02-03)
PROC: 02CQ3ZZ Extirpation of Matter from Right Pulmonary Artery, Percutaneous Approach (ICD-10-PCS; 2023-02-03)
PROC: B31TYZZ Fluoroscopy of Left Pulmonary Artery using Other Contrast (ICD-10-PCS; 2023-02-03)
PROC: B31SYZZ Fluoroscopy of Right Pulmonary Artery using Other Contrast (ICD-10-PCS; 2023-02-03)
PROC: B519YZZ Fluoroscopy of Inferior Vena Cava using Other Contrast (ICD-10-PCS; 2023-02-03)
DX: O88.23 Thromboembolism in the puerperium (principal); J96.01 Acute respiratory failure with hypoxia; I21.A1 Myocardial infarction type 2; Q20.0 Common arterial trunk; O99.43 Diseases of the circulatory system complicating the puerperium; O99.53 Diseases of the respiratory system complicating the puerperium; O99.335 Smoking (tobacco) complicating the puerperium; O90.81 Anemia of the puerperium; D64.9 Anemia, unspecified; F17.290 Nicotine dependence, other tobacco product, uncomplicated; I36.1 Nonrheumatic tricuspid (valve) insufficiency; Z98.51 Tubal ligation status
CPT/HCPCS: 36415; 37184; 71045; 71275; 76856; 80053; 83540; 83550; 83735; 83880; 84443; 84484; 85025; 85379; 85610; 85730; 86850; 86900; 86901; 86920; 87081; 93005; 93306; 93451; 93568; 93970; 99152; 99291; C1894; G0378; J2250; Q9967

== ENCOUNTER 2023-03-18 17:05 | Emergency (ER) | payer MEDICAID ==
[~2023-03-18] VITALS: Ht 160 cm; Wt 56.0 kg
[~2023-03-18 17:05] MED LIST changes: +APIX5TAB PO
[2023-03-18 18:07] LABS: Basophils # (auto) 0 10 ^3/uL (0-0.2); Eosinophils # (auto) 0.1 10 ^3/uL (0-0.8); Hemoglobin 12.1 g/dL (12.2-16.2); Mean Corpuscular Hemoglobin 24.2 pg (28.0-32.0); Mean Corpuscular Hgb Conc. 31.1 g/dL (32.0-36.0); Monocytes # (auto) 0.3 10 ^3/uL (0-1.3); Neutrophils # (auto) 4.2 10 ^3/uL (1.6-8.6); Red Blood Cells 4.99 10^6/uL (4.0-5.20)
[2023-03-18 18:08] LABS: Basophils % (auto) 0.3 % (0.0-2.0); Eosinophils % (auto) 0.8 % (0.0-7.0); Hematocrit 38.7 % (36.0-46.0); Lymphocytes # (auto) 1.8 10 ^3/uL (0.4-5.4); Lymphocytes % (auto) 28.2 % (10.0-50.0); Mean Corpuscular Volume 77.6 fL (80.0-100.0); Monocytes % (auto) 5.1 % (0.0-12.0); Neutrophils % (auto) 65.6 % (37.0-80.0); White Blood Cell 6.4 10^3/uL (4.4-10.8)
[2023-03-18 18:12] LABS: Alanine Aminotransferase 20 U/L (7-40); Albumin 4.7 g/dL (3.2-4.8); Alkaline Phosphatase 70 U/L (46-116); Anion Gap 8 (5-15); Aspartate Aminotransferase 20 U/L (13-40); Blood Urea Nitrogen 10 mg/dL (9-23); Calcium 9.7 mg/dL (8.7-10.4); Carbon Dioxide 26 mmol/L (20-30); Chloride 105 mmol/L (98-107); Glucose 88 mg/dL (74-106); Magnesium 1.9 mg/dL (1.6-2.6); Sodium 139 mmol/L (136-145)
[2023-03-18 18:13] LABS: Bilirubin, Total 0.4 mg/dL (0.2-1.0); Total Protein 6.7 g/dL (5.7-8.2)
[2023-03-18 18:26] LABS: Red Cell Distribution Width 23.8 % (11.8-14.3)
[2023-03-18 18:30] LABS: Amphetamine Screen, Urine Neg (NEGATIVE); Urine Bacteria NONE SEEN /hpf (None Seen); Urine Blood Negative /uL (Negative); Urine Clarity Clear (Clear); Urine Color Colorless (Yellow); Urine Protein, UAD Negative (Negative); Urine Specific Gravity 1.014 (1.001-1.035); Urine Urobilinogen Normal (Negative); Urine WBC <1 /hpf (0 - 5); Urine pH 6.5 (5.0-8.0)
[2023-03-18 18:31] LABS: Barbiturate Scree,Urine Neg (NEGATIVE); Benzodiazephine Screen, Urine Neg (NEGATIVE); Cannabinoid Screen, Urine Neg (NEGATIVE); Cocaine Screen, Urine Neg (NEGATIVE); Opiate Scree,Urine Neg (NEGATIVE); Phencyclidine Screen, Urine Neg (NEGATIVE)
[2023-03-18 18:32] LABS: INR 1.04 (0.9-1.15); Partial Thromboplastin Time 29.2 SEC (24.5-34.5); Prothrombin Time 10.9 sec (9.3-11.8)
[2023-03-18] MEDS ORDERED: ACET500T58 PO (20:27)
[2023-03-18 21:04] VITALS: BP 141/91; PULSE 77; RESP 18; TEMP 97.4; O2SAT 96
== END 2023-03-18 21:06 | disposition home or self-care (01) ==
LOC: ER 17:05
DX: M94.0 Chondrocostal junction syndrome [Tietze] (principal); Z79.899 Other long term (current) drug therapy
CPT/HCPCS: 36415; 71045; 80053; 80307; 81001; 83735; 83880; 84484; 85025; 85379; 85610; 85730; 93005